=== PATIENT | male | born 1965 | race Caucasian/White ===

== ENCOUNTER 2017-08-19 10:04 | Emergency (ER) | payer OTHER ==
[2017-08-19] MEDS ORDERED: Ketorolac INJ* 30 MG/ML 1 ML VIAL IV ONE (10:50)
[2017-08-19] MEDS ORDERED: NS 0.9% 1000 ML* 1,000 ML IV ONE (10:50)
[2017-08-19 11:09] LABS: ABS Basophils 0.1 10^3/ul (0-0.2); ABS Eosinophils 0.1 10^3/ul (0-0.6); ABS Lymphocytes 1.2 10^3/ul (1.0-4.8); ABS Monocytes 1.2 10^3/ul (0-0.8); ABS Neutrophils 9.1 10^3/ul (1.5-7.7); ABS Nucleated RBC 0.1 10^3/ul; Eosinophil % 0.8 % (0-6); Hematocrit 47 % (42-52); Hemoglobin 16.4 g/dl (14.0-18.0); Lymphocyte % 10.3 % (25-47); Mean Corpuscular HGB Conc 35 g/dl (31-36); Mean Corpuscular Hemoglobin 30 pg (27-31); Mean Corpuscular Volume 86 fL (80-94); Mean Platelet Volume 8 um3 (7.4-10.4); Nucleated Red Blood Cells % 0.4; Platelet Count 203 10^3/ul (150-450); Red Blood Count 5.51 10^6/ul (4.0-5.4); Red Cell Distribution Width 14 % (10.5-15); White Blood Count 11.7 10^3/ul (3.5-10.8)
[2017-08-19 11:25] LABS: INR 1.11 (0.77-1.02)
[2017-08-19 11:28] LABS: EGFR Non-African American 87.4 (>60)
[2017-08-19] MEDS ORDERED: Iohexol 350* (CONTRAST) 500 ML MDV IV ONE (11:42)
--- NOTE | 2017-08-19 11:50 | RAD ---
INDICATION: Right chest splinting, chest pain. COMPARISON: Comparison is made with a prior study from July 30, 2015. TECHNIQUE: 2 portable films of the chest were obtained. FINDINGS: Cardiac and mediastinal contours appear to be within normal limits. The lungs are underinflated, there are small infiltrates at both lung bases. IMPRESSION: EXPIRATORY EXAM, SMALL BIBASILAR INFILTRATES.
--- NOTE | 2017-08-19 12:28 | RAD ---
INDICATION: Splinting RIGHT rib/chest pain. Assess for PE. COMPARISON: Chest radiograph of the same date and July 30, 2015 CT abdomen. TECHNIQUE: Multidetector CT images were obtained from the lung apices to the upper abdomen with 80 mL Omnipaque 350 IV contrast. Pulmonary angiogram protocol. Multiplanar reformation including with maximum intensity projection. REPORT: Low lung volumes with subsegmental atelectasis. More confluent airspace consolidation at the peripheral posterior aspect of the lingula and basilar segments of the LEFT lower lobe is less specific. Negative for pleural effusions. Negative for pneumothorax. Negative for lymphadenopathy, cardiomegaly, or pericardial effusion. Normal diameter thoracic aorta. Suboptimal opacification of the pulmonary arteries due to late phase of enhancement and motion artifact limits the CT pulmonary angiogram. There are no filling defects within the main through the segmental pulmonary arteries to indicate pulmonary embolism. The subsegmental pulmonary arteries largely cannot be assessed. Images through the upper abdomen are remarkable for fatty infiltration of the liver and prior cholecystectomy. Negative for suspicious osseous lesions. IMPRESSION: 1. Moderately limited CT pulmonary angiogram due to suboptimal opacification of the pulmonary arteries and motion artifact. No compelling evidence for pulmonary embolism at the main through segmental pulmonary arteries. If clinically indicated the exam could be repeated. 2. Alveolar consolidation at the LEFT lung base is most suspicious for atelectasis given volume loss. Inflammatory infiltrate is not excluded. 3. Fatty infiltration of the liver.
--- NOTE | 2017-08-19 13:39 | ED ---
Vishal Kinsey Stephanie, scribed for Deniz Enriquez MD on 08/19/17 at 1118 . Complex/Multi-Sys Presentation - HPI Summary HPI Summary: The pt is a 51 y/o M presenting to the ED with c/o R rib pain that began yesterday. The pain radiates to his R shoulder and is aggravated by lying down, sitting up, taking a deep breath and moving. The pt describes the pain to feel like as if he pulled something. The pt denies calf pain, calf swelling, rash, fever, middle back pain, abd pain, GI/ urinary symptoms, chills and cough. Alleviating factors include raising the R arm above the head and Percocet. - History Of Current Complaint Chief Complaint: EDChestWallPain Time Seen by Provider: 08/19/17 10:39 Hx Obtained From: Patient Onset/Duration: Lasting Days - 1, Still Present Timing: Constant Severity Currently: Mild Location: Radiates To: - R shoulder Aggravating Factor(s): lying down, sitting up, taking a deep breath and moving Alleviating Factor(s): raising the R arm above the head and Percocet. Associated Signs And Symptoms: Positive: Other - Negative: calf pain, calf swelling, rash, middle back pain, GI/ urinary symptoms, and chills. 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 Cholecystectomy years ago Infectious Disease History: No Infectious Disease History: Denies: Hx Hepatitis, Hx Human Immunodeficiency Virus (HIV), Traveled Outside the [place] in Last 30 Days - Family History Known Family History: Positive: Cardiac Disease, Hypertension, Diabetes, Other - colon cancer, aortic aneurism - Social History Occupation: Employed Part-time Lives: With Family Alcohol Use: Occasionally Substance Use Type: Reports: None Smoking Status (MU): Never Smoked Tobacco Review of Systems Negative: Fever, Chills Negative: Cough Positive: no symptoms reported Positive: Other - R rib pain that radiates to R shoulder. Negative: middle back pain. Negative: Edema - Neg: calf pain, calf swelling. Negative: Rash All Other Systems Reviewed And Are Negative: Yes Physical Exam - Summary Physical Exam Summary: General: well-appearing, mild pain distress that becomes moderate with movement. Skin: warm, color reflects adequate perfusion, dry Head: normal Eyes: EOMI, LILLIANA ENT: normal Neck: supple, nontender Respiratory: CTA, breath sounds present Cardiovascular: RRR Abdomen: soft, nontender Bowel: present Musculoskeletal: strength/ROM intact, tender to palpation over R lower ribs Neurological: normal, sensory/motor intact, A&O x3 Psychological: affect/mood appropriate Triage Information Reviewed: Yes Vital Signs On Initial Exam: Initial Vitals Temp Pulse Resp BP Pulse Ox 98.2 F 103 19 162/88 96 08/19/17 10:13 08/19/17 10:13 08/19/17 10:13 08/19/17 10:13 08/19/17 10:13 Vital Signs Reviewed: Yes - [place] Coma Scale Coma Scale Total: 15 Diagnostics - Vital Signs Vital Signs Temp Pulse Resp BP Pulse Ox 08/19/17 10:58 95 08/19/17 10:27 105 18 95 08/19/17 10:24 144/89 08/19/17 10:13 98.2 F 103 19 162/88 96 - Laboratory Lab Results: Lab Results 08/19/17 08/19/17 08/19/17 Range/Units 10:57 10:57 10:57 WBC (3.5-10.8) 10^3/ul RBC (4.0-5.4) 10^6/ul Hgb (14.0-18.0) g/dl Hct (42-52) % MCV (80-94) fL MCH (27-31) pg MCHC (31-36) g/dl RDW (10.5-15) % Plt Count (150-450) 10^3/ul MPV (7.4-10.4) um3 Neut % (Auto) (38-83) % Lymph % (Auto) (25-47) % Stafford % (Auto) (1-9) % Eos % (Auto) (0-6) % Baso % (Auto) (0-2) % Absolute Neuts (auto) (1.5-7.7) 10^3/ul Absolute Lymphs (auto) (1.0-4.8) 10^3/ul Absolute Monos (auto) (0-0.8) 10^3/ul Absolute Eos (auto) (0-0.6) 10^3/ul Absolute Basos (auto) (0-0.2) 10^3/ul Absolute Nucleated RBC 10^3/ul Nucleated RBC % INR (Anticoag Therapy) 1.11 H (0.77-1.02) APTT 32.0 (26.0-36.3) seconds D-Dimer, Quantitative < 200 (Less Than 230) ng/mL Sodium 138 (133-145) mmol/L Potassium 3.9 (3.5-5.0) mmol/L Chloride 105 (101-111) mmol/L Carbon Dioxide 24 (22-32) mmol/L Anion Gap 9 (2-11) mmol/L BUN 18 (6-24) mg/dL Creatinine 0.92 (0.67-1.17) mg/dL Est GFR ( Amer) 112.5 (>60) Est GFR (Non-Af Amer) 87.4 (>60) BUN/Creatinine Ratio 19.6 (8-20) Glucose 124 H (70-100) mg/dL Lactic Acid (0.5-2.0) mmol/L Calcium 10.1 (8.6-10.3) mg/dL Magnesium 2.1 (1.9-2.7) mg/dL Total Bilirubin 0.70 (0.2-1.0) mg/dL AST 20 (13-39) U/L ALT 44 (7-52) U/L Alkaline Phosphatase 76 (34-104) U/L Troponin I 0.01 (<0.04) ng/mL C-Reactive Protein 28.88 H (< 5.00) mg/L B-Natriuretic Peptide 20 ( - 100) pg/mL Total Protein 7.4 (6.4-8.9) g/dL Albumin 4.5 (3.2-5.2) g/dL Globulin 2.9 (2-4) g/dL Albumin/Globulin Ratio 1.6 (1-3) Lipase 33 (11.0-82.0) U/L TSH 5.54 (0.34-5.60) mcIU/mL 08/19/17 08/19/17 Range/Units 10:57 10:57 WBC 11.7 H (3.5-10.8) 10^3/ul RBC 5.51 H (4.0-5.4) 10^6/ul Hgb 16.4 (14.0-18.0) g/dl Hct 47 (42-52) % MCV 86 (80-94) fL MCH 30 (27-31) pg MCHC 35 (31-36) g/dl RDW 14 (10.5-15) % Plt Count 203 (150-450) 10^3/ul MPV 8 (7.4-10.4) um3 Neut % (Auto) 77.7 (38-83) % Lymph % (Auto) 10.3 L (25-47) % Stafford % (Auto) 10.1 H (1-9) % Eos % (Auto) 0.8 (0-6) % Baso % (Auto) 1.1 (0-2) % Absolute Neuts (auto) 9.1 H (1.5-7.7) 10^3/ul Absolute Lymphs (auto) 1.2 (1.0-4.8) 10^3/ul Absolute Monos (auto) 1.2 H (0-0.8) 10^3/ul Absolute Eos (auto) 0.1 (0-0.6) 10^3/ul Absolute Basos (auto) 0.1 (0-0.2) 10^3/ul Absolute Nucleated RBC 0.1 10^3/ul Nucleated RBC % 0.4 INR (Anticoag Therapy) (0.77-1.02) APTT (26.0-36.3) seconds D-Dimer, Quantitative (Less Than 230) ng/mL Sodium (133-145) mmol/L Potassium (3.5-5.0) mmol/L Chloride (101-111) mmol/L Carbon Dioxide (22-32) mmol/L Anion Gap (2-11) mmol/L BUN (6-24) mg/dL Creatinine (0.67-1.17) mg/dL Est GFR ( Amer) (>60) Est GFR (Non-Af Amer) (>60) BUN/Creatinine Ratio (8-20) Glucose (70-100) mg/dL Lactic Acid 1.7 (0.5-2.0) mmol/L Calcium (8.6-10.3) mg/dL Magnesium (1.9-2.7) mg/dL Total Bilirubin (0.2-1.0) mg/dL AST (13-39) U/L ALT (7-52) U/L Alkaline Phosphatase (34-104) U/L Troponin I (<0.04) ng/mL C-Reactive Protein (< 5.00) mg/L B-Natriuretic Peptide ( - 100) pg/mL Total Protein (6.4-8.9) g/dL Albumin (3.2-5.2) g/dL Globulin (2-4) g/dL Albumin/Globulin Ratio (1-3) Lipase (11.0-82.0) U/L TSH (0.34-5.60) mcIU/mL Result Diagrams: 08/19/17 10:57 08/19/17 10:57 Lab Statement: Any lab studies that have been ordered have been reviewed, and results considered in the medical decision making process. - Radiology CXR Xray Interpretation: Positive (See Comments) Radiology Interpretation Completed By: Radiologist - EXPIRATORY EXAM, SMALL BIBASILAR INFILTRATES. - CT CTA Chest/Thorax CT Interpretation: Positive (See Comments) CT Interpretation Completed By: Radiologist - 1. Moderately limited CT pulmonary angiogram due to suboptimal opacification of the pulmonary arteries and motion artifact. No compelling evidence for pulmonary embolism at the main through segmental pulmonary arteries. If clinically indicated the exam could be repeated. 2. Alveolar consolidation at the LEFT lung base is most suspicious for atelectasis given volume loss. Inflammatory infiltrate is not excluded. 3. Fatty infiltration of the liver. - EKG 10:58 EKG Rhythm: Sinus Tachycardia - [address] Segment: Normal Ectopy: None EKG Interpretation: Borderline prolonged QT interval. QTC 476 Complex Multi-Symp Course/Dx Course Of Treatment: Medications reviewed. PAIN IMPROVED IN ED AFTER IV TORADOL. DISCUSSED RESULTS WITH PATIENT AND HIS . WILL TREAT FOR POSSIBLE BRONCHITIS. F/U PMD; RETURN IF WORSE. - Diagnoses Provider Diagnoses: Chest pain Discharge - Discharge Plan Condition: Stable Disposition: HOME Prescriptions: Azithromyxin MAX (NF) [Z-Max (Zithromax) 250 mg tabs #6] 2 tab PO .TODAY, THEN 1 DAILY #6 tab oxyCODONE/Acetamin 5/325 MG* [Percocet 5/325 TAB*] 1 tab PO Q4H PRN #30 tab MDD 6 PRN Reason: Pain Patient Education Materials: Chest Pain (ED) Referrals: Sergio Caldwell MD [Primary Care Provider] - Additional Instructions: FOLLOW UP WITH YOUR DOCTOR. RETURN TO THE EMERGENCY DEPARTMENT FOR ANY WORSENING OF YOUR CONDITION; PAIN, SHORTNESS OF BREATH, YOU FEEL ILL OR QUESTIONS OR CONCERNS. The documentation as recorded by the Vishal mayen Stephanie accurately reflects the service I personally performed and the decisions made by me, Deniz Enriquez MD.
[2017-08-19 13:49] VITALS: BP 146/87
== END 2017-08-19 13:52 | disposition home or self-care (01) ==
LOC: ED 10:04
DX: R07.9 Chest pain, unspecified (principal); R07.81 Pleurodynia
CPT/HCPCS: 36415; 71045; 71275; 80053; 83605; 83690; 83735; 83880; 84443; 84484; 85025; 85379; 85610; 85730; 86140; 93005; 96361; 96374; 99283; J1885; Q9967